=== PATIENT | female | born 2000 | race African-American/Black ===

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

== ENCOUNTER 2021-03-09 18:48 | Emergency (ER) | payer BC, OTHER ==
[~2021-03-09] VITALS: Ht 167.6 cm; Wt 118.2 kg
[2021-03-09 19:05] VITALS: BP 144/83
== END 2021-03-09 21:41 | disposition left against medical advice (07) ==
LOC: ER 18:49
DX: R06.02 Shortness of breath (principal); Z53.21 Procedure and treatment not carried out due to patient leaving prior to being seen by health care provider
CPT/HCPCS: 93005

== ENCOUNTER 2021-06-10 11:47 | Emergency (ER) | payer BC ==
[~2021-06-10] VITALS: Ht 167.6 cm; Wt 108.7 kg
[2021-06-10 11:56] VITALS: BP 125/76
[2021-06-10] MEDS ORDERED: cephalexin 250mg capsule PO ONE (12:45)
[2021-06-10] MEDS ORDERED: TETanus/Pertussis (Acell)/Diphther VAC/PF (Tdap-Adult) 0.5ml syringe IMVAC ONE (13:40)
[2021-06-10] MEDS ORDERED: bacitracin 15gm ointment TP ONE (13:40)
[2021-06-10] MEDS ORDERED: CEPH500C2 PO (13:43)
== END 2021-06-10 13:49 | disposition home or self-care (01) ==
LOC: ER 11:48
DX: S91.331A Puncture wound without foreign body, right foot, initial encounter (principal); W22.8XXA Striking against or struck by other objects, initial encounter; Y93.89 Activity, other specified; Y92.89 Other specified places as the place of occurrence of the external cause; Y99.8 Other external cause status
CPT/HCPCS: 90471; 99283